=== PATIENT | female | born 1990 | race Caucasian/White ===

== ENCOUNTER 2017-01-20 08:31 | Emergency (ER) | payer BC, OTHER ==
[2017-01-20 08:47] VITALS: RESP 20
[2017-01-20] MEDS ORDERED: DIPH,PERTUS(ACELL)TETVAC-LF 0.5 ML VIAL IM ONE (09:05)
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
--- NOTE | 2017-01-20 09:26 | XR ---
EXAMINATION TYPE: XR ankle complete RT DATE OF EXAM ORDERED: 01/20/2017 9:22 AM HISTORY: Pain. COMPARISON: None. FINDINGS: No fracture, dislocation or ankle joint effusion is seen. IMPRESSION: NORMAL RIGHT ANKLE.
[2017-01-20 10:01] VITALS: BP 118/72; PULSE 84; TEMP 97.8
== END 2017-01-20 10:01 | disposition home or self-care (01) ==
LOC: EC 08:31
DX: S90.01XA Contusion of right ankle, initial encounter (principal); Z23 Encounter for immunization; V48.5XXA Car driver injured in noncollision transport accident in traffic accident, initial encounter; Y92.410 Unspecified street and highway as the place of occurrence of the external cause
CPT/HCPCS: 90471; 90715; 99284

== ENCOUNTER 2022-05-24 19:10 | Emergency (ER) | payer OTHER ==
[2022-05-24 19:18] VITALS: RESP 16; TEMP 98
[2022-05-24] MEDS ORDERED: HYDROmorphone 0.5 MG/0.5 ML SYRINGE IVP STA (19:58)
[2022-05-24] MEDS ORDERED: SODIUM CHLORIDE 0.9% 1,000 ML IV STA (19:58)
[2022-05-24] MEDS ORDERED: ONDANSETRON 4 MG/2 ML VIAL IVP STA (19:58)
--- NOTE | 2022-05-24 20:00 | ED ---
General Adult HPI - General Source: patient, RN notes reviewed, old records reviewed Mode of arrival: ambulatory Limitations: no limitations <Jonathan Godwin - Last Filed: 05/24/22 19:58> <Levy Worley - Last Filed: 05/24/22 23:18> - General Chief complaint: Abdominal Pain Stated complaint: abd pain Time Seen by Provider: 05/24/22 19:54 - History of Present Illness Initial comments: 31-year-old female presenting for evaluation of right upper quadrant pain over the past 2 days. Patient has had vomiting. She's had constant pain. She's been told in the past that she had gallbladder issues. She has been eating a low-fat diet for the past one year without treatment issues. (Jonathan Godwin) - Related Data Home Medications Medication Instructions Recorded Confirmed No Known Home Medications 05/24/22 05/24/22 Allergies Allergy/AdvReac Type Severity Reaction Status Date / Time No Known Allergies Allergy Verified 05/24/22 21:31 Review of Systems ROS Other: All systems not noted in ROS Statement are negative. <Jonathan Godwin - Last Filed: 05/24/22 19:58> ROS Other: All systems not noted in ROS Statement are negative. <Levy Worley - Last Filed: 05/24/22 23:18> ROS Statement: Those systems with pertinent positive or pertinent negative responses have been documented in the HPI. Past Medical History Past Medical History: No Reported History History of Any Multi-Drug Resistant Organisms: None Reported Past Surgical History: No Surgical Hx Reported Past Psychological History: No Psychological Hx Reported Smoking Status: Never smoker Past Alcohol Use History: None Reported Past Drug Use History: None Reported <Jonathan Godwin - Last Filed: 05/24/22 19:58> General Exam Limitations: no limitations General appearance: alert, in no apparent distress Head exam: Present: atraumatic, normocephalic Eye exam: Present: normal appearance, PERRL Neck exam: Present: normal inspection. Absent: tenderness, meningismus Respiratory exam: Present: normal lung sounds bilaterally. Absent: respiratory distress, wheezes Cardiovascular Exam: Present: regular rate, normal rhythm GI/Abdominal exam: Present: soft, tenderness (Right upper quadrant). Absent: distended, guarding, rebound Extremities exam: Present: normal inspection, normal capillary refill. Absent: pedal edema Neurological exam: Present: alert, oriented X3, CN II-XII intact. Absent: motor sensory deficit Psychiatric exam: Present: normal affect, normal mood Skin exam: Present: warm, dry, intact. Absent: cyanosis, diaphoretic <Jonathan Godwin - Last Filed: 05/24/22 19:58> Course <Jonathan Godwin - Last Filed: 05/24/22 19:58> Vital Signs 05/24/22 19:16 Temperature 98 F Pulse Rate 85 Respiratory 16 Rate Blood Pressure 127/78 O2 Sat by Pulse 100 Oximetry - Reevaluation(s) Reevaluation #1: 05/24/22 2100 Care signed out to Dr. Worley awaiting labs and US (Jonathan Godwin) Medical Decision Making - Lab Data Result diagrams: 05/24/22 21:25 05/24/22 21:25 <Levy Worley - Last Filed: 05/24/22 23:18> - Medical Decision Making Patient care signed out to me by previous shift physician, Dr. Godwin. Briefly, patient 31-year-old female presents emergency department for right upper quadrant abdominal pain. Gall bladder ultrasound shows multiple gallstones. There is a large common bile duct with retained echogenicity suggesting choledocholithiasis. Laboratory evaluation obtained. Patient has slightly elevated liver enzymes with bilirubin 3.7 suggesting biliary duct obstruction. Was discussed with on-call general surgeon Dr. Roman request the patient be transferred due to lack of GI coverage at her facility. Spoke with Dr. Kalyani orellana who is willing to accept patient's care for ER to ER transfer. (Levy Worley) - Lab Data Lab Results 05/24/22 05/24/22 05/24/22 Range/Units 21:25 21:25 21:25 WBC 14.4 H (3.8-10.6) k/uL RBC 5.45 H (3.80-5.40) m/uL Hgb 15.5 (11.4-16.0) gm/dL Hct 48.6 H (34.0-46.0) % MCV 89.1 (80.0-100.0) fL MCH 28.4 (25.0-35.0) pg MCHC 31.9 (31.0-37.0) g/dL RDW 12.7 (11.5-15.5) % Plt Count 317 (150-450) k/uL MPV 7.5 Neutrophils % 88 % Lymphocytes % 6 % Monocytes % 3 % Eosinophils % 2 % Basophils % 0 % Neutrophils # 12.6 H (1.3-7.7) k/uL Lymphocytes # 0.9 L (1.0-4.8) k/uL Monocytes # 0.5 (0-1.0) k/uL Eosinophils # 0.3 (0-0.7) k/uL Basophils # 0.0 (0-0.2) k/uL PT 10.2 (9.0-12.0) sec INR 0.9 (<1.2) APTT 24.8 (22.0-30.0) sec Sodium 137 (137-145) mmol/L Potassium 4.3 (3.5-5.1) mmol/L Chloride 100 (98-107) mmol/L Carbon Dioxide 26 (22-30) mmol/L Anion Gap 11 mmol/L BUN 12 (7-17) mg/dL Creatinine 0.69 (0.52-1.04) mg/dL Est GFR (CKD-EPI)AfAm >90 (>60 ml/min/1.73 sqM) Est GFR (CKD-EPI)NonAf >90 (>60 ml/min/1.73 sqM) Glucose 84 (74-99) mg/dL Plasma Lactic Acid Pollo (0.7-2.0) mmol/L Calcium 9.7 (8.4-10.2) mg/dL Total Bilirubin 3.7 H (0.2-1.3) mg/dL AST 164 H (14-36) U/L ALT 282 H (4-34) U/L Alkaline Phosphatase 174 H (38-126) U/L Total Protein 8.5 H (6.3-8.2) g/dL Albumin 4.9 (3.5-5.0) g/dL Amylase 69 (30-110) U/L Lipase 75 (23-300) U/L 05/24/22 Range/Units 21:25 WBC (3.8-10.6) k/uL RBC (3.80-5.40) m/uL Hgb (11.4-16.0) gm/dL Hct (34.0-46.0) % MCV (80.0-100.0) fL MCH (25.0-35.0) pg MCHC (31.0-37.0) g/dL RDW (11.5-15.5) % Plt Count (150-450) k/uL MPV Neutrophils % % Lymphocytes % % Monocytes % % Eosinophils % % Basophils % % Neutrophils # (1.3-7.7) k/uL Lymphocytes # (1.0-4.8) k/uL Monocytes # (0-1.0) k/uL Eosinophils # (0-0.7) k/uL Basophils # (0-0.2) k/uL PT (9.0-12.0) sec INR (<1.2) APTT (22.0-30.0) sec Sodium (137-145) mmol/L Potassium (3.5-5.1) mmol/L Chloride (98-107) mmol/L Carbon Dioxide (22-30) mmol/L Anion Gap mmol/L BUN (7-17) mg/dL Creatinine (0.52-1.04) mg/dL Est GFR (CKD-EPI)AfAm (>60 ml/min/1.73 sqM) Est GFR (CKD-EPI)NonAf (>60 ml/min/1.73 sqM) Glucose (74-99) mg/dL Plasma Lactic Acid Pollo 0.8 (0.7-2.0) mmol/L Calcium (8.4-10.2) mg/dL Total Bilirubin (0.2-1.3) mg/dL AST (14-36) U/L ALT (4-34) U/L Alkaline Phosphatase (38-126) U/L Total Protein (6.3-8.2) g/dL Albumin (3.5-5.0) g/dL Amylase (30-110) U/L Lipase (23-300) U/L Disposition <Jonathan Godwin - Last Filed: 05/24/22 19:58> - Out of Hospital Transfer - Req. Specs Out of Hospital Transfer - Requested Specifics: Other Emergency Center ([facility]) <Levy Worley Filed: 05/24/22 23:18> Clinical Impression: Choledocholithiasis Disposition: OTHER INSTITUTION NOT DEFINED Condition: Fair Referrals: None,Stated [Primary Care Provider] - 1-2 days
[2022-05-24 21:58] LABS: Basophils % (A) 0 %; Eosinophils # (A) 0.3 k/uL (0-0.7); Eosinophils % (A) 2 %; HCT 48.6 % (34.0-46.0); HGB 15.5 gm/dL (11.4-16.0); Lymphocytes # (A) 0.9 k/uL (1.0-4.8); Lymphocytes % (A) 6 %; MCH 28.4 pg (25.0-35.0); MCHC 31.9 g/dL (31.0-37.0); MCV 89.1 fL (80.0-100.0); Mean Platelet Volume 7.5; Monocytes # (A) 0.5 k/uL (0-1.0); Monocytes % (A) 3 %; Neutrophils # (A) 12.6 k/uL (1.3-7.7); Neutrophils % (A) 88 %; Platelet Count 317 k/uL (150-450); RBC 5.45 m/uL (3.80-5.40); RDW 12.7 % (11.5-15.5); WBC 14.4 k/uL (3.8-10.6)
[2022-05-24 22:02] LABS: INR 0.9 (<1.2); Partial Thromboplastin Time 24.8 sec (22.0-30.0); Prothrombin Time 10.2 sec (9.0-12.0)
--- NOTE | 2022-05-24 22:02 | US ---
EXAMINATION TYPE: US gallbladder DATE OF EXAM: 05/24/2022 COMPARISON: NONE CLINICAL HISTORY: RUQ pain. RUQ pain TECHNIQUE: Multiple sonographic images of the right upper quadrant are obtained. FINDINGS: EXAM MEASUREMENTS: Liver Length: 15.3 cm Gallbladder Wall: 0.3 cm CBD: 1.0 cm Right Kidney: 12.2 x 4.6 x 5.0 cm SEWER CONNECTOR NOTES: Pancreas: wnl Liver: wnl Gallbladder: Entire lumen filled with debris and gallstones, wall thickness upper limits of normal Evidence for sonographic Hutton's sign: Yes CBD: Dilated- ?possible stones or other echogenic abnormality at head of pancrease Right Kidney: wnl IMPRESSION: Multiple gallstones. Large common bile duct. No dilation of the intrahepatic bile ducts. There is davina e echogenicity at the distal common bile duct that could be choledocholithiasis.
[2022-05-24 22:03] LABS: ALT 282 U/L (4-34); African American GFR (CKD) >90 (>60 ml/min/1.73 sqM); Albumin 4.9 g/dL (3.5-5.0); Amylase 69 U/L (30-110); Anion Gap 11 mmol/L; Blood Urea Nitrogen 12 mg/dL (7-17); Calcium 9.7 mg/dL (8.4-10.2); Carbon Dioxide 26 mmol/L (22-30); Chloride 100 mmol/L (98-107); Glucose 84 mg/dL (74-99); Lipase 75 U/L (23-300); Non-African American GFR(CKD) >90 (>60 ml/min/1.73 sqM); Sodium 137 mmol/L (137-145); Total Bilirubin 3.7 mg/dL (0.2-1.3); Total Protein 8.5 g/dL (6.3-8.2)
[2022-05-24 22:08] LABS: AST 164 U/L (14-36); Alkaline Phosphatase 174 U/L (38-126); Potassium 4.3 mmol/L (3.5-5.1)
[2022-05-25 00:13] VITALS: BP 107/54; PULSE 68
== END 2022-05-25 00:12 | disposition other institution (70) ==
LOC: EC 19:10
DX: K80.50 Calculus of bile duct without cholangitis or cholecystitis without obstruction (principal)
CPT/HCPCS: 36415; 80053; 82150; 83605; 83690; 85025; 85610; 85730; 76705; 99284; 96374; 96375; J2405; J1170

== ENCOUNTER → 2023-06-23 | Outpatient (CLI) | payer SELFPAY | END | disposition home or self-care (01) | LOC: LABWHC1 11:25 | PROVIDERS: ATTEND Obstetrics & Gynecology | DX: N94.89 Other specified conditions associated with female genital organs and menstrual cycle (principal); N93.8 Other specified abnormal uterine and vaginal bleeding | CPT/HCPCS: 36415; 84702 ==

== ENCOUNTER → 2024-01-04 | Outpatient (CLI) | payer OTHER ==
--- NOTE | 2024-01-04 17:10 | US ---
EXAMINATION TYPE: US OB anatomy transabd DATE OF EXAM: 01/04/2024 COMPARISON: NONE CLINICAL INDICATION: Female, 33 years old with history of O36.62X0 MATERNAL CARE FOR EXCESS ERIC WTH, SE; Anatomy scan. TECHNIQUE: Transabdominal (TA) EXAM MEASUREMENTS: GESTATIONAL AGE / DATING Physician Established: (19 weeks/1 days) EDC: 05/29/2024 Dates by LMP: (19 weeks/1 days) EDC: 05/29/2024 Dates by Current Scan for: (19 weeks/2 days) EDC: 05/28/2024 SURVEY IUP: Single PLACENTA: Anterior PREVIA: No previa NASIMA: 10.5 cm Normal CERVICAL LENGTH (transabdominal: norm > 3.0cm): 3.7 cm BIOMETRY PRESENTATION: Vertex BPD: 4.2 cm 18 weeks / 6 days HC: 16.5 cm 19 weeks / 2 days AC: 14.2 cm 19 weeks / 4 days FL: 3.0 cm 20 weeks / 0 days ESTIMATED WEIGHT IN GRAMS: 289 grams ESTIMATED WEIGHT IN LBS/OZ: 0 lbs. 10 oz. WEIGHT PERCENTAGE BASED ON ESTABLISHED DATE: 60 % HC/AC: 1.2 Normal FL/AC: 21% HEART RATE: 144 bpm RHYTHM: Normal ANATOMY SEEN (within normal limits): * Lateral Vent (< 1 cm) 0.5 cm * Cisterna Magna (< 1.1 cm) 0.4 cm * Nuchal Fold (< 0.6 cm) 0.4 cm * Cerebellum (varies with age) 1.8 cm Choroid Plexus (bilateral) Midline Falx Cavus Septi Pellucidi Four Chamber Heart Outflow tracts: LVOT/RVOT Profile Stomach Situs Nose / Lips Diaphragm Kidneys (bilateral) Bladder Cord Insert Three Vessel Cord Longitudinal Spine Transverse Spine Arms (bilateral) Legs (bilateral) Feet (bilateral) Hands (bilateral) ANATOMY SEEN (does not appear within normal limits): None ANATOMY NOT SEEN: None IMPRESSION: Single live intrauterine gestation with ultrasound age of 19 weeks and 2 days.
== END | disposition home or self-care (01) ==
LOC: RADUSWWP 14:59
PROVIDERS: ATTEND Obstetrics & Gynecology
DX: O36.62X0 Maternal care for excessive fetal growth, second trimester, not applicable or unspecified (principal); Z3A.19 19 weeks gestation of pregnancy
CPT/HCPCS: 76811

== ENCOUNTER 2024-05-02 12:35 | Outpatient (CLI) | payer OTHER ==
[2024-05-02 14:27] VITALS: BP 111/74; PULSE 104; RESP 16; TEMP 97.4
--- NOTE | 2024-05-06 22:21 | P.MSEPDOC ---
Presenting Problems - Arrival Data Date of Arrival on Unit: 05/02/24 Time of Arrival on Unit: 12:35 Mode of Transport: Ambulatory - Complaint OB-Reason for Admission/Chief Complaint: Possible Onset of Labor Comment: Patient presents to triage with cramping and decreased movement. Medical History - Information : 2 Para: 1 Term: 1 : 0 Abortions: Spontaneous or Elective: 0 Number of Living Children: 1 - Gestational Age Gestational Age by FRANCY (wks/days): 36 Weeks and 1 Days Review of Systems - Review of Systems Constitutional: No problems Breast: No problems ENT: No problems Cardiovascular: No problems Respiratory: No problems Gastrointestinal: No problems Genitourinary: No problems Musculoskeletal: No problems Neurological: No problems Skin: No problems Vital Signs - Temperature Temperature: 97.4 F Temperature Source: Oral - Pulse Pulse Oximetery Pulse Rate: 104 Pulse Assessment Method: Pulse Oximetry - Respirations Respiratory Rate: 16 Oxygen Delivery Method: Room Air O2 Sat by Pulse Oximetry: 97 - Blood Pressure Right Arm Blood Pressure: 111/74 Blood Pressure Mean: 86 Blood Pressure Source: Automatic Cuff Physician Notification - Physician Notified Physician Notified Date: 05/02/24 Physician Notified Time: 13:57 Physician: Mary Middleton Maternal Triage Index - Maternal Triage Index Presenting for scheduled procedure w/no complaint: No - Stat/Priority 1 Stat Priority 1: No - Urgent/Priority 2 Urgent Priority 2: No - Prompt/Priority 3 Prompt Priority 3: No - Non-Urgent/Priority 4 Non-Urgent Priority 4: Yes Criteria Met for Priority 4: Patient presents to triage with cramping and decreased movement. Disposition - Disposition OB Disposition: Discharge to home Discharge Date: 05/02/24 Discharge Time: 14:30 I agree with the RN Medical Screening Exam: Yes Case reviewed; plan agreed upon as documented in EMR&OBIX.: Yes Diagnosis: DECREASED MOVEMENTS, THIRD TRIMESTER, FETUS 1
== END 2024-05-02 14:28 ==
LOC: FBPOP 12:35
PROVIDERS: ATTEND Obstetrics & Gynecology
DX: O47.03 False labor before 37 completed weeks of gestation, third trimester (principal); O36.8131 Decreased fetal movements, third trimester, fetus 1; Z3A.36 36 weeks gestation of pregnancy
CPT/HCPCS: 59025; 99213

== ENCOUNTER 2024-05-31 06:01 | Inpatient (IN) | payer OTHER | END 2024-06-01 14:06 | disposition home or self-care (01) | DRG 807 | LOC: 4FBP 06:01 | PROVIDERS: ADMIT Obstetrics & Gynecology; ATTEND Obstetrics & Gynecology | PROC: 10E0XZZ Delivery of Products of Conception, External Approach (ICD-10-PCS; principal; 2024-05-31) | PROC: 4A0HXCZ Measurement of Products of Conception, Cardiac Rate, External Approach (ICD-10-PCS; 2024-05-31) | PROC: 0HQ9XZZ Repair Perineum Skin, External Approach (ICD-10-PCS; 2024-05-31) | PROC: 10907ZC Drainage of Amniotic Fluid, Therapeutic from Products of Conception, Via Natural or Artificial Opening (ICD-10-PCS; 2024-05-31) | PROC: 3E033VJ Introduction of Other Hormone into Peripheral Vein, Percutaneous Approach (ICD-10-PCS; 2024-05-31) | DX: O76 Abnormality in fetal heart rate and rhythm complicating labor and delivery (principal); Z37.0 Single live birth; O70.0 First degree perineal laceration during delivery; Z87.19 Personal history of other diseases of the digestive system; Z3A.39 39 weeks gestation of pregnancy ==